=== PATIENT | male | born 1965 | race Caucasian/White ===

== ENCOUNTER 2022-09-12 12:14 | Emergency (ER) | payer MEDICAID ==
[~2022-09-12] VITALS: Ht 165.1 cm; Wt 73.9 kg
[2022-09-12 13:13] VITALS: BP 143/93
[2022-09-12] MEDS ORDERED: LIDOCAINE MPF 1% 10 MG/ML VIAL INJ ONE (13:35)
[2022-09-12] MEDS ORDERED: IBUP-1842 PO (14:02)
[2022-09-12] MEDS ORDERED: SULF-58 PO (14:02)
[2022-09-12] MEDS ORDERED: CEPH-588 PO (14:02)
[2022-09-12 14:11] VITALS: BP 143/93
--- NOTE | 2022-09-12 14:11 | NUR ---
Patient discharged with v/s stable. Written and verbal after care instructions given and explained. Patient alert, oriented and verbalized understanding of instructions. Ambulatory with steady gait. All questions addressed prior to discharge. ID band removed. Patient advised to follow up with PMD. Rx of keflex, motrin, bactrim (sent) given. Patient educated on indication of medication including possible reaction and side effects. Opportunity to ask questions provided and answered.
== END 2022-09-12 14:11 | disposition home or self-care (01) ==
LOC: MED 12:14
DX: L02.212 Cutaneous abscess of back [any part, except buttock and flank] (principal); E11.9 Type 2 diabetes mellitus without complications; I10 Essential (primary) hypertension; E78.5 Hyperlipidemia, unspecified; Z79.899 Other long term (current) drug therapy
CPT/HCPCS: 10060; 99283; J2001

== ENCOUNTER 2022-09-14 09:09 | Emergency (ER) | payer MEDICAID ==
[~2022-09-14] VITALS: Ht 170.2 cm; Wt 74.4 kg
[~2022-09-14 09:09] MED LIST: CEPH-588 PO; IBUP-1842 PO; SULF-58 PO
[2022-09-14 09:44] VITALS: BP 148/92
--- NOTE | 2022-09-14 09:47 | NUR ---
PT AMBULATED TO ER BED 3
--- NOTE | 2022-09-14 09:47 | NUR ---
PT AMB TO BED 3
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
--- NOTE | 2022-09-14 10:35 | NUR ---
Patient discharged with v/s stable. Written and verbal after care instructions FOR WOUND CARE given and explained. Patient verbalized understanding. Ambulatory with steady gait. All questions addressed prior to discharge. Advised to follow up with PMD.
--- NOTE | 2022-09-14 10:51 | NUR ---
The patient's care was reviewed and supervised by April Bowers RN.
== END 2022-09-14 10:35 | disposition home or self-care (01) ==
LOC: MED 09:09
DX: L02.212 Cutaneous abscess of back [any part, except buttock and flank] (principal); E11.9 Type 2 diabetes mellitus without complications; I10 Essential (primary) hypertension; E78.5 Hyperlipidemia, unspecified; Z79.899 Other long term (current) drug therapy
CPT/HCPCS: 90471; 90715; 99283